=== PATIENT | female | born 1975 | race Caucasian/White ===

== ENCOUNTER → 2016-08-05 | Day surgery (SDC) | payer OTHER ==
[~2016-08-05] VITALS: Ht 167.6 cm; Wt 560.6 kg
--- NOTE | 2016-08-05 14:30 | RADIOLOGY REPORT ---
EXAMINATION: XR PORTABLE CHEST CLINICAL INFORMATION: Postoperative from Port-A-Cath insertion. Breast cancer. COMPARISON: Chest CT from 07/31/2016 TECHNIQUE: Portable frontal view of the chest was obtained. FINDINGS: Lungs are well expanded and clear. Cardiac silhouette is normal in size and the mediastinal, hilar and diaphragmatic contours are normal. No pneumothorax or pleural effusion. There is a medication port of the right chest wall with intact catheter terminating in the distal superior vena cava. Bones are unremarkable. IMPRESSION: 1. Port-A-Cath is in satisfactory position. The tip of the catheter terminates in the distal superior vena cava. 2. No acute pulmonary disease.
--- NOTE | 2016-08-05 18:28 | Operative Report ---
Operative/Inv Procedure Report Surgery Date: 08/05/16 Name of Procedure: Insertion of subcutaneous tunnel Port-A-Cath via right subclavian vein with the guidance of fluoroscopy Pre-Operative Diagnosis: Breast cancer Post-Operative Diagnosis: Same Estimated Blood Loss: scant Surgeon/Oracle Dba: GUNNER GAN,ANDI Martienz Anesthesia: local monitored anesthesi Operative/Procedure Note Note: With the patient supine on the OR table, right arm tucked, head not turned, after induction of MAC sedation, the patient's right subclavian area, including the shoulder neck and contralateral chest, were prepped and draped in the usual sterile fashion. After injecting local anesthetic in the right infraclavicular area, skin, subcutaneous to the clavicle, and inferiorly where the pocket will be, the patient was repositioned to Trendelenburg. Putting your right index finger on the sternal notch and thumb pressing down lateral to the curve of the clavicle, I made a puncture through the skin with the 15 blade scalpel next to thumb. Then along that line towards the tip of your finger, advance a large- bore needle, bevel towards the feet, on a slip tip 10 mL syringe barrel flat against the deltoid, advancing to bone and then "walking" it down just under the clavicle keeping the needle flat as possible, while maintaining vacuum with the plunger, accessing the subclavian venous blood, then replacing the syringe with a wire, sliding in with minimum resistance, confirming the position with the C- arm fluoroscope, making sure the wire is traveling down along the cava towards the right side of the heart and not up or across, and no ectopy. Next I secured the wire to the drape, measured (approximately 23 cm), cut and attached the catheter to the port. Approximately 3-4 cm inferior to the stick site a 2-1/2 cm long skin incision was made with a 15 blade scalpel along Langers lines. It was deepened with cautery and a space was developed inferiorly under the subcutaneous layer. The Port-A-Cath was laid in there and secured in [address] with 2-0 Prolene through the holes in the port, the sutures were kept loose on snaps at this point. Next the catheter was tunneled up subcutaneously with a snap and brought out through the stick site next to the wire. Then the dilator only, was passed over the wire until you could feel it slide under the clavicle, then removed, then re-advanced this time with the peel-away sheath over it, while advancing simultaneously pull the dilator out and advance the sheath, eventually pulling out the dilator and wire completely. Then the catheter was put into the sheath as far as it'll go then while holding that knuckle down with DeBakey's, gently peel-away the sheath with your podiatrist assistant. Now the correct position of the catheter was confirmed with the fluoroscope, using a Wheat needle and heparinized saline solution, the catheter was first aspirated then flushed with approximately 3 mL's, with minimal resistance. The patient was repositioned to neutral, after tying down the 2 Prolenes, the larger incision was closed in layers, 3-0 Vicryl deep and 4-0 subcuticular Monocryl for the skin, and one subcuticular Monocryl for the stick site. Both areas were covered with Mastisol Steri-Strips Telfa and Tegaderm. Chest x-ray was ordered to be done in the recovery room. Lap and sponge counts were correct. Wound expectancy was clean, IV fluids crystalloid, complications none, patient tolerated the procedure well was awakened and returned to the recovery room in satisfactory condition.
--- NOTE | 2016-08-06 07:32 | RADIOLOGY REPORT ---
EXAMINATION:\H\ \N\XR CHEST/INTRAOPERATIVE FLUOROSCOPY CLINICAL INFORMATION: Port-A-Cath insertion. COMPARISON: None TECHNIQUE/FINDINGS: Fluoroscopic equipment was dedicated to the operating room for the performance of the Port-A-Cath insertion. Single spot film was acquired and is archived in PACS. A right subclavian Port-A-Cath is seen extending into the superior vena cava with its tip in region of the distal SVC. FLUOROSCOPY TIME: 5 seconds. IMPRESSION: Administrative dictation for Port-A-Cath insertion.
== END ==
LOC: STS 03:51
DX: C50.911 Malignant neoplasm of unspecified site of right female breast (principal)
CPT/HCPCS: 81025; C1751; J0131; J0690; J1644; J1885; J2250

== ENCOUNTER 2017-03-03 01:07 | Inpatient (IN) | payer OTHER ==
[~2017-03-03] VITALS: Ht 167.6 cm; Wt 57.6 kg
--- NOTE | 2017-03-03 12:12 | NUCLEAR MEDICINE REPORT ---
EXAMINATION: LYMPHOSCINTIGRAPHY CLINICAL INFORMATION: MALIGNANT NEOPLASM OF UPPER OUTER QUADRANT OF RIGHT BREAST
COMPARISON: None. TECHNIQUE: A total of 1.12 mCi technetium 99m Lymphoseek was injected in divided doses around the right areola by MASON Fish . Images of the right breast and axilla in the anterior, SY, and right lateral projections were obtained with simultaneous visualization of the body silhouette using a cobalt flood source, with the patient positioned between the flood source and the gamma camera. FINDINGS: 2 sentinal node are visualized in the right axilla. Small cluster of echelon nodes are visualized in the right axilla. Lymphatic tract extending to the right axilla. There appears to be multiple routes of lymphatic drainage including lymphatic tracts extending to the internal mammary lymph node. IMPRESSION: [place] nodes identified in the right axilla with small cluster of echelon nodes. As noted, there are multiple routes of lymphatic drainage with visualization of the internal mammary lymph node. Lymphatic tracts extending to the right axilla and internal mammary region.
--- NOTE | 2017-03-03 14:25 | Operative Report ---
Operative/Inv Procedure Report Surgery Date: 03/03/17 Name of Procedure: bilateral mastectomy right sentinel lymph node biopsy Pre-Operative Diagnosis: Right breast cancer, status post neoadjuvant chemotherapy Post-Operative Diagnosis: Same Estimated Blood Loss: less than 50ml Surgeon/Animal Caregiver: Eugenia Denny MD Anesthesia: general endotracheal tube Specimens: Left breast, suture oconnell medial, right breast, suture oconnell medial, sentinel lymph node 2 Operative/Procedure Note Note: Patient is status post neoadjuvant chemotherapy for a multifocal right-sided breast cancer. She is brought to the operating room on 03/03/17 after preoperative lymphoscintigraphy was performed and those films were reviewed. She was given general anesthesia and bilateral breasts were prepped and draped in sterile fashion. 3 mL of methylene blue diluted with 2 mL saline was injected in the retroareolar fashion on the right breast. The left breast was approached first. Patient was consented for an areolar sparing mastectomy bilaterally. An incision was made around the nipple with medial and lateral extensions. Skin flaps are created superiorly to the level of the clavicle, medially to the sternum, laterally to the latissimus and inferiorly to the superior border the rectus sheath. Breast was then removed from the pectoralis fascia using plasma blade and lighted retractor. Hemostasis is adequate. The right breast was approached in a similar fashion and skin flaps are created similarly. The port was identified on the fascia of the muscle at the superior border the dissection. The breast was removed from the pectoralis muscle and marked with a suture at the medial aspect as well. A separate incision was made in the axilla for access to the sentinel lymph node. Clavipectoral fascia was entered in the axilla was explored. There was a hot, blue lymph node identified. There was an adjacent hot lymph node as well which was removed. The blue lymph node had counts to 8000 and the additional lymph node had counts to 600. There were no other hot, blue, or palpable lymph nodes identified. Clavipectoral fascia was closed using interrupted Vicryl sutures and the skin was closed using a running Biosyn subcuticular stitch. The procedure was then turned over to Dr. Keller who performed immediate reconstruction. Patient remained stable throughout the procedure.
--- NOTE | 2017-03-03 15:53 | Operative Report ---
Operative/Inv Procedure Report Surgery Date: 03/03/17 Name of Procedure: Bilateral breast reconstruction with tissue expanders and dermal matrix Pre-Operative Diagnosis: Absent breasts bilaterally Post-Operative Diagnosis: Same Estimated Blood Loss: 50ml to 100ml Surgeon/Manager Mail: sussy Anesthesia: general endotracheal tube Operative/Procedure Note Note: Patient was counseled in regards to the procedure the alternatives the risks and expected outcomes as relates to request for surgical intervention to treat bilateral absent breasts with reconstruction. The patient was consented for direct to implant bilaterally with the possibility of tissue expanders and AlloDerm or Flex HD with either scenario. Informed consent was signed. Today Dr. Agusto mallory began the procedure removing bilateral breasts. The quality of the vascularity of the hoh skin flaps was questioned and therefore tissue expanders were placed. 225 mL tissue expanders were placed in the submuscular position after dividing the inferior and inferior medial portion of the pectoralis muscle. Flex HD was used trimmed appropriately to perform an inferior sling. Drains were placed both above and below the Flex HD. Copious irrigation was used throughout including triple antibiotic and Betadine. Multiple glove changes were performed by myself was the only when he touched the fire extinguisher repairer inspector and Betadine prep of the skin each and every time. Layer closure of the skin was carried out of the access site as well as Dermabond glue. Ends dictation
[2017-03-03 17:55] VITALS: BP 132/75
--- NOTE | 2017-03-03 20:13 | Admission Core Measures ---
Acute Coronary Syndrome (CM) ACS Core Measures Acute Coronary Syndrome Diagnosis No Congestive Heart Failure (NEW) CHF Core Measures Congestive Heart Failure Diagnosis No Cerebrovascular Accident (NEW) CVA Core Measures CVA/TIA Diagnosis No Venous Thromboembolism VTE Core Daren (View Protocol) VTE Risk Factors Surgery No Mechanical VTE Prophylaxis d/t N/A MechProphylax Ordered No VTE Pharm Prophylaxis d/t Surgical Contraindication Problem List As ranked by this Provider includes Assessment & Plan 1. Breast cancer HOME MEDS Home Med List No Known Home Medications
--- NOTE | 2017-03-03 20:16 | PN- General Surgery ---
Subjective Subjective: POSTOP CHECK sleeping comfortably, did not wake. per rn, c/o incisional pain- fell asleep after pain meds Objective Vital Signs and I&Os Vital Signs Date Time Temp Pulse Resp B/P B/P Pulse O2 O2 Flow FiO2 Mean Ox Delivery Rate 03/03 1755 99 Nasal 2.0L Cannula Physical Exam: gen-nad did not wake Assessment/Plan Assessment/Plan POD0 SP bl mastectomy with immediate tissue inspector timers reconstruction, right sn bx , reasting comfortably P- prn pain meds reg diet as tolerated hl once peace po, voiding alps, oob, hep sq tomorrow am labs titrate o2 ancef q8 while inpt, then keflex tid x5days when discharged keep jps to self suction i&os dc planning Core Measures Venous Thromboembolism VTE Risk Factors Surgery No Mechanical VTE Prophylaxis d/t N/A MechProphylax Ordered No VTE Pharm Prophylaxis d/t NA PharmProphylax ordered No VTE Pharm Prophylaxis d/t NA PharmProphylax ordered
[2017-03-03 21:54] VITALS: BP 100/60
[2017-03-04 07:14] VITALS: BP 102/58
--- NOTE | 2017-03-04 07:29 | PN- General Surgery ---
Subjective Subjective: feels well with some "tightness" Objective Vital Signs and I&Os Vital Signs Date Time Temp Pulse Resp B/P B/P Pulse O2 O2 Flow FiO2 Mean Ox Delivery Rate 03/04 713 97.8 64 20 102/58 98 Nasal 1.0L Cannula 03/04 0000 Nasal 1.0L Cannula 03/03 2153 98.0 60 20 100/60 99 Nasal 1.0L Cannula 03/03 1754 98.4 70 18 132/75 99 Nasal 2.0L Cannula 03/03 175 99 Nasal 2.0L Cannula Intake & Output 03/04 0803/04 0000 03/03 1600 03/03 0803/03 0000 03/02 1600 Intake Total 1280 880 Output Total 610 57 Balance 670 823 Intake, IV 800 400 Intake, Oral 480 480 Output, 60 57 Drainage Output, Urine 550 Patient 127 lb Weight Weight Reported by Patient Measurement Method Assessment/Plan Assessment/Plan Patient is doing well after bilateral mastectomy with right sentinel node biopsy. Her pain is well controlled. There is no evidence of hematoma and dressing are in tact, SASHA serosanguinous. Plan: SASHA teaching, Pain control, ambulation and diet. If tolerates above and pain controlled, can be discharged. Core Measures Venous Thromboembolism VTE Risk Factors Surgery No Mechanical VTE Prophylaxis d/t N/A MechProphylax Ordered No VTE Pharm Prophylaxis d/t NA PharmProphylax ordered
[2017-03-04] MEDS ORDERED: PERCOCET 5-3251 EACH PO (11:06)
[2017-03-04] MEDS ORDERED: KEFLEX500 M1 PO (11:06)
--- NOTE | 2017-03-04 11:15 | Patient Discharge Instructions ---
Discharge Instructions General Discharge Information You were seen/treated for: Right breast cancer You had these procedures: On 03/03/16 1. Bilateral mastectomy with right sentinel lymph node biopsy with Dr. Denny 2. Bilateral breast reconstruction with tissue expanders and dermal matrix with Dr. Keller Watch for these problems: Increased pain, bleeding, redness, swelling or purulent drainage from incisions or increased bleeding from your SASHA drains. Call Surgeon to remove: Other (SASHA) Do not soak the wound: Yes No bath, but you may shower: Yes Other wound care: Keep incisions clean and dry Cover with dressing as needed Ok to shower in 2 days Special Instructions: Please contact Dr. Denny and Dr. Keller's office to schedule follow up appointments in 1 week. Take Keflex as prescribed for 5 days. Take Percocet and Valium as needed for pain control and muscle spasm Recommend taking a stool softner (Colace/Senna) to prevent constipation while taking Percocet Diet Continue normal diet: Yes Activity Full Activity/No Limits: No Pounds, do NOT lift more than: 10 Other activity limits: No arm extension above 90 degrees. No heavy lifting or strenous activity x 4 weeks or until cleared by your surgeons. Continue to ambulate Acute Coronary Syndrome Inclusion Criteria At DC or during hospital stay patient has or had the following: ACS DIAGNOSIS No Discharge Core Measures Meds if any: Prescribed or Continued at Discharge Meds if any: NOT Prescribed or Continued at Discharge Congestive Heart Failure Inclusion Criteria At DC or during hospital stay patient has or had the following: CHF DIAGNOSIS No Discharge Core Measures Meds if any: Prescribed or Continued at Discharge Meds if any: NOT Prescribed or Continued at Discharge Cerebrovascular accident Inclusion Criteria At DC or during hospital stay patient has or had the following: CVA/TIA Diagnosis No Discharge Core Measures Meds if any: Prescribed or Continued at Discharge Meds if any: NOT Prescribed or Continued at Discharge Venous thromboembolism Inclusion Criteria VTE Diagnosis No VTE Type NONE VTE Confirmed by (Test) NONE Discharge Core Measures - Per Current guidelines, there needs to be overlap - treatment for the first 5 days of Warfarin therapy. - If discharged on Warfarin prior to 5 days of - overlap therapy, the patient will need to be - assessed for post discharge needs including - *Post discharge parental anticoagulation - *Warfarin and/or parental anticoagulation education - *Follow up date to check INR post discharge At least 5 days overlap therapy as Inpatient No Meds if any: Prescribed or Continued at Discharge Note: Overlap Therapy is Warfarin and Anticoagulant Meds if any: NOT Prescribed or Continued at Discharge
[2017-03-04 14:46] VITALS: BP 100/60
[2017-03-04 22:45] VITALS: BP 102/60
[2017-03-05 06:15] VITALS: BP 96/60
--- NOTE | 2017-03-05 06:49 | PN- Student ---
Corwin Jacinto 03/05/17 0648: Subjective Subjective: Ruby is a 41yo Caucasain F post op day 2 s/p bilaterally mastectomy with R sentinal node biopsy. She states her pain has gone down since being medicated and was able to sleep last night. She describes her pain as chest tightness at the incision sites at 2/10 when lying still and 7/10 when moving. She has been ambulating to the bathroom and around her room. No questions or complaints at this time. Denies: H/A, vision changes, SOB, abd pain, N/V/D, extremity weakness/numbness or syncope. Objective Objective: GENERAL: PT sleeping in upright position in bed upon entering the room. Patient has support bra and dressings on chest with [address] (minimal serosanginous fluid noted- drained earlier this am). Patient has pleasant affect and is A+Ox4. In NAD. RESP: Poor respiratory effort 2/2 'chest tightness' r/t incision site/expanders. CTAB. CARDIO: RRR, no M/R/G, S1 and S2 audible. ABD: Soft, nontender, nondistended, normoactive bowel sounds audible in all 4 quadrants. MUSC: 5/5 strength throughout. ROM not tested 2/2 pain of incision sites. No edema. NEURO: Sensation intact. Results Results: Laboratory Tests 03/03/17 0718: Urine Test NEGATIVE Assessment/Plan Assessment: Ruby is a 41 yo Caucasain F post op day 2 s/p bilateral mastectomy with right sentinel node biopsy r/t breast cancer. Patient appears to be recovering well from the procedure and is in NAD. She has not passed a BM since her procedure but has passed gas and currently on colace. She is ambulating to the bathroom and around her room with moderate pain but states "It's what I have to do, so I can do it." Plan: Continue regular diet and colace. Continue to encourage ambulation throughout the unit. Continue heparin x 3 more days. D/C with pain medications as ordered. Discharge scheduled today if pain continues to improve. Naseem Mcrae 03/05/17 0902: Assessment/Plan Plan: Patient seen and examined. Patient continues to complain of chest tightness in her sternum and incision sites. Denies shortness of breath, however reports trouble catching her breath when she was crying last night related to pain. On exam, she appears fatigued and pale in NAD, afebrile saturating 96% on ra. Lungs are CTAB, S1S2 noted and bradycardic. Breast incisions are healing well with no signs of hematoma or infection, SASHA drains with serosanguineous drainage, 18/5/ /5 with appropriate tenderness. She is POD 2 s/p B/L mastectomy with right sentinel node biopsy and immediate B/L reconstruction with tissue expanders due to right-sided breast cancer with concern for PE due to hypercoaguable state, surgery and decreased ambulation. She has been recieving hep sq for dvt prophylaxsis. Futher recommendations to follow pending CT chest. D/w Dr. Denny
[2017-03-05] MEDS ORDERED: VALIUM5 M2 PO (11:13)
--- NOTE | 2017-03-05 11:15 | Surgical Discharge Summary ---
Visit Information Visit Dates Admission Date: 03/03/17 Discharge Date: 03/05/17 History of Present Illness Chief Complaint: Right breast cancer, status post neoadjuvant chemotherapy Medical History Blood Transfusion Hx: No Neurological: NONE EENT: NONE Cardiovascular: MITRAL MURMUR Respiratory: bronchitis, pneumonia Gastrointestinal: NONE Hepatic: NONE Renal: NONE Musculoskeletal: NONE Psychiatric: NONE Endocrine: NONE Blood Disorders: NONE Cancer(s): breast cancer History of MRSA: No History of VRE: No History of CDIFF: No Isolation History: Standard Surgical History Pertinent Surgical History: PORTACATH [facility] Psychosocial History Where Do You Live? Home Who Do You Live With? Spouse Services at Home: None What is Your Primary Language? German Review of Systems: neg Hospital Course Course Attending Physician: Eugenia Denny MD Primary Care Physician: Rahul GAN,[place] Hospital Course: Patient underwent an uneventful bilateral mastectomy, right sentinel node biopsy , and immediate reconstruction on 03/03/17. Post operatively, her vital signs were stable, but pain control remained an issue. She ambulated minimally on POD1. On the morning of POD2, she complained of shortness of breath with expected chest pain and CT angio was done to rule out PE. CT scan showe dno evidence of PE and pain was better controlled with Valium. She will be discharged homw with SASHA drains and po analgesics. Allergies: Coded Allergies: codeine (VIOLENT VOMITING 02/28/17) Disposition Summary Disposition Principal Diagnosis: Right breast cancer Additional Diagnosis: none Discharge Disposition: home or self care Discharge Instructions General Discharge Information Code Status: Full Code Patient's Diet: ad lima Patient's Activity: no arm extension above 90degress.Otherwise activity ad lima Follow-Up Instructions/Appts: Follow up Dr. Keller and Dr. Denny in 1 week. Medications at Discharge Discharge Medications: Start taking the following new medications: Cephalexin (Keflex) 500 MG CAPSULE 1 Capsule ORAL THREE TIMES DAILY Qty = 15 No Refills Oxycodone HCl/Acetaminophen (Percocet 5-325 MG Tablet) 5 MG-325 MG TABLET 1-2 Tablet ORAL EVERY 4-6 HOURS as needed for PAIN Qty = 30 No Refills
--- NOTE | 2017-03-05 12:09 | CT SCAN REPORT ---
EXAMINATION: CT ANGIOGRAM OF THE CHEST WITH AND WITHOUT CONTRAST (CT PULMONARY ANGIOGRAM FOR PE) CLINICAL INFORMATION: Chest pain. Personal history of breast cancer, status post bilateral mastectomy. COMPARISON: Chest CT of 07/31/2016. Chest x-ray of 08/05/2016. TECHNIQUE: Prior to contrast administration, noncontrast localization images were obtained. Subsequently, multidetector volumetric imaging was performed from the thoracic inlet to below the diaphragms following the administration of 80 mL Omnipaque 350 intravenous contrast. No contrast reaction reported. Sagittal, coronal, and MIP oblique sagittal reformatted images were obtained on the CT workstation, uploaded to PACS, and reviewed. Total exam dose-length product 362.26 mGy-cm. FINDINGS: QUALITY OF STUDY/CONTRAST BOLUS: Satisfactory. PULMONARY ARTERIES: No central or segmental pulmonary emboli. THORACIC AORTA: No aneurysm or dissection. LUNG AND PLEURA: A 0.5 cm calcified nodule abutting the left major fissure in the upper lobe posteriorly (series 2 image 84, a 2 mm calcified nodule in the posterior left upper lobe (series 2 image 110, adjacent tiny noncalcified nodule abutting the fissure in the left upper lobe (series 2 image 109) are stable since last CT. A 4 mm nodule in the right upper lobe posterolaterally (series 2 image 130) is new compared to previous study. An oblong subpleural 3 x 6 mm nodule in the right upper lobe posterolaterally (series 2 image 145 is new. A 3 mm nodule abutting the right major fissure (series 2 image 248) is stable. A 3 mm peripheral nodule in the right lower lobe posterolaterally (series 2 image 270) is stable. A 4 mm nodule versus bronchopulmonary lymph node in the left lower lobe posterolaterally medially (series 2 image 257) is stable. Very small bilateral pleural effusion and bilateral dependent atelectasis are new. MEDIASTINUM: The visualized thyroid gland is unremarkable. There is no evidence of mediastinal or hilar adenopathy. Cardiac size is normal. No pericardial effusion. A lobulated hypodense cystic lesion in the right paracardiac location at the lung base is noted, measuring 2.7 x 6.0 x 4.3 cm (length, AP and transverse, series 4 image 39), previously 2.1 x 4.8 x 4.0 cm. No evidence of septal bowing or right heart strain. CHEST WALL/AXILLA: No axillary or internal mammary lymphadenopathy. Postsurgical changes of bilateral mastectomy are seen with bilateral intramammary prostheses. Multiple streaking artifacts from the bilateral intramammary prostheses somewhat limits the evaluation of the surrounding soft tissue. OSSEOUS STRUCTURES: No acute or suspicious osseous abnormality. UPPER ABDOMEN: Multiple calcified splenic granulomas are redemonstrated. No reflux of contrast into the hepatic veins to suggest elevated right heart pressures. IMPRESSION: 1. No evidence of pulmonary embolism. 2. New bilateral very small pleural effusions with bibasilar dependent atelectasis. 3. Multiple bilateral pulmonary nodules are stable since previous CT of 07/31/2016 except 2 nodules in the right upper lobe as detailed above measuring 4 mm and 3 x 6 mm are new. Consider follow-up noncontrast chest CT in 3-6 months. 4. Right paracardiac low-density cystic lesion in the lower chest has mildly increased in size since the tibia study and likely represents a pericardial cyst. VTE: negative
== END 2017-03-05 13:05 | DRG 581 ==
LOC: SDA 01:07 → ENRESERV 16:34 → ENTRNSPT 17:24 → EDTRNSPTSTS 17:29 → CMPTRNSPT 17:54 → 2NA 18:03 → ENPENDDIS 03-05 11:36 → ENTRNSPT 03-05 12:36 → EDTRNSPTSTS 03-05 12:58 → 2NA 03-05 13:05 → CMPTRNSPT 03-05 13:13
PROC: 0HTV0ZZ Resection of Bilateral Breast, Open Approach (ICD-10-PCS; principal; 2017-03-03)
PROC: 07B80ZX Excision of Right Internal Mammary Lymphatic, Open Approach, Diagnostic (ICD-10-PCS; 2017-03-03)
PROC: 0HHV0NZ Insertion of Tissue Expander into Bilateral Breast, Open Approach (ICD-10-PCS; 2017-03-03)
DX: C50.911 Malignant neoplasm of unspecified site of right female breast (principal); R01.1 Cardiac murmur, unspecified; Z92.21 Personal history of antineoplastic chemotherapy
CPT/HCPCS: 2NASP; 81025; A9520; C9399; J0131; J0690; J1580; J1644; J2405; J2550; Q9965

== ENCOUNTER → 2017-08-07 | Day surgery (SDC) | payer OTHER ==
[~2017-08-07] VITALS: Ht 167.6 cm; Wt 60.8 kg
[~2017-08-07] MED LIST: HERCEPTIN150 MG IV; KEFLEX500 M1 PO; PERCOCET 5-3251 EACH PO; VALIUM5 M2 PO
--- NOTE | 2017-08-07 12:38 | Operative Report ---
Operative/Inv Procedure Report Surgery Date: 08/07/17 Name of Procedure: Exchange bilateral tissue expanders for silicone implants, capsulectomies, capsulotomies revision inframammary folds Pre-Operative Diagnosis: Status post placement bilateral breast tissue expanders following mastectomy Post-Operative Diagnosis: Same Estimated Blood Loss: 50ml to 100ml Surgeon/[employer] Hooker: Krishna GAN,Joshua St Anesthesia: laryngeal mask airway Operative/Procedure Note Note: Patient was counseled regards the procedure the alternatives the risks and expected outcomes as relates to her request for surgical intervention to replace tissue expanders in the bilateral breasts with silicone implants. We talked about the risks which included infection bleeding pain numbness seroma hematoma loss of nipple or skin tissue leading to exposed implant. We talked about possibly having to explant the implants. Talked about pain and failure to achieve her desired size or shape. We talked about it frequently and informed consent was signed after marking the patient in the standing position. She was taken to the operating room placed supine on the table. Venodyne boots are placed general anesthesia was established intravenous antibiotics were given. The chest was prepped and draped in usual sterile fashion. Inframammary incision was made on the right and the tissue enterprise resource planner was removed. Capsulectomies were done to remove significant capsule. Capsulotomy was done medially to move the implant medially. Mammary fold was reestablished with deep sutures. Copious irrigation was carried out with triple antibiotics and Betadine. Of note Guilherme funnel was used as well as Betadine straight to the skin multiple glove changes by the operating surgeon. Symmetry was good with the use of 400 mL sizer procedure was performed on the left side. Similar procedure was performed. End cc high profile smooth gel implants were placed bilaterally with a similar technique. Of note Monocryl placed in the deep layer and not tied prior to the placement of the implant. 3 layer closure was then carried out bilaterally. The patient had been put in the sitting position for symmetry which was good.
== END ==
LOC: STS 01:47
DX: Z42.1 Encounter for breast reconstruction following mastectomy (principal); Z85.3 Personal history of malignant neoplasm of breast; Z92.21 Personal history of antineoplastic chemotherapy
CPT/HCPCS: 81025; J0131; J0690; J1580; J1885; J2250; J3490; L8600